=== PATIENT | female | born 1940 | race Caucasian/White ===

== ENCOUNTER 2017-07-25 07:57 | Day surgery (SDC) | payer MEDICARE ==
[~2017-07-25] VITALS: Ht 175.3 cm; Wt 95.0 kg
[2017-07-25] MEDS ORDERED: SODIUM CHLORIDE 0.9% 500 ML IV PRN (08:29)
[2017-07-25 08:48] VITALS: BP 148/88
[2017-07-25] MEDS ORDERED: DILT120C11 PO (09:05)
[2017-07-25] MEDS ORDERED: RIVA20TA PO (09:05)
[2017-07-25] MEDS ORDERED: PROPOFOL 10 MG/ML, 20ML ONE (10:39)
== END 2017-07-25 12:37 | disposition home or self-care (01) ==
LOC: CACL 07:57
PROVIDERS: ATTEND Internal Medicine Cardiovascular Disease
DX: I48.91 Unspecified atrial fibrillation (principal); I10 Essential (primary) hypertension; E78.5 Hyperlipidemia, unspecified; I34.0 Nonrheumatic mitral (valve) insufficiency; I36.1 Nonrheumatic tricuspid (valve) insufficiency; Z85.3 Personal history of malignant neoplasm of breast; Z79.899 Other long term (current) drug therapy
CPT/HCPCS: 92960; 93005; J2704